=== PATIENT | male | born 1975 | race Caucasian/White ===

== ENCOUNTER 2018-11-08 20:15 | Emergency (ER) | payer OTHER ==
--- NOTE | 2018-11-08 20:26 | ED Physician Documentation ---
General Adult - HISTORIAN Historian: patient - HPI Chief Complaint: General Adult Additional Information: 43yo, white male who has been moving a lot of boxes around. Last noc started to have some pain in the left anterior chest wall area with radiation into the back. Worse with moving around, when twist torso. Pain is constant. Has a history of chronic degenerative disc disease and spinal stenosis. Panin seems to be in the lower left anterior chest wall area where he has had mesh put in for abd wall hernia Onset: hours (12 hours) Timing: still present, worse - ROS CONST: no problems. denies: fever, chills - PAST HX Past History: other (degenerative disc disease, spinal stenosis (unkown level), hx of pancreatitis) Surgeries/Procedures: cholecystectomy, other (abd wall hernia repair with mesh in the area of pain) Immunizations: referred to PCP Allergies/Adverse Reactions: Allergies Allergy/AdvReac Type Severity Reaction Status Date / Time hydroxyzine Allergy Verified 11/08/18 20:25 ketorolac [From Toradol] Allergy Verified 11/08/18 20:25 metoclopramide [From Reglan] Allergy Verified 11/08/18 20:24 NSAIDS (Non-Steroidal AdvReac Nausea/Vomi Verified 11/08/18 20:24 Anti-Inflamma ting Home Medications: Ambulatory Orders Medication Instructions Recorded HYDROcodone /APAP 5/325 [[place] 1 each PO Q6 PRN #10 tablet 11/08/18 5/325] Insulin Glargine,Hum.rec.anlog 30 units SQ HS 11/08/18 [Lantus Solostar] - SOCIAL HX Smoking History: non-smoker Alcohol Use: none Drug Use: none - FAMILY HX Family History: No - REVIEWED ASSESSMENTS Nursing Assessment Reviewed: Yes Vitals Reviewed: Yes Progress - Progress Progress: Pain seems to be worse with flexion of abd and twisting to the right ED Results Lab/Radiology - Radiology Radiology Impressions: 2 views chest Clinical history: Lower chest pain Findings: The heart size is normal. Pulmonary vasculature is normal. The lungs are clear. Impression: Negative General Adult Physical Exam - PHYSICAL EXAM GENERAL APPEARANCE: mild distress EENT: ENT inspection normal, pharynx normal NECK: normal inspection, thyroid normal, supple RESPIRATORY: no resp distress, chest non-tender, breath sounds normal. No: wheezes, rales, rhonchi CVS: reg rate & rhythm, heart sounds normal, equal pulses, no murmur, no gallop ABDOMEN: soft, no organomegaly, normal bowel sounds, no distension, tenderness (high in the left upper qudrant area). No: rebound, distended, guarding BACK: normal inspection, no CVA tenderness SKIN: warm/dry, normal color EXTREMITIES: non-tender, normal range of motion NEURO: oriented X3, CN's nml as tested, motor nml, sensation nml, mood/affect nml Discharge Clincal Impression: Abdominal wall pain Prescriptions: HYDROcodone /APAP 5/325 [[place] 5/325] 1 each PO Q6 PRN #10 tablet PRN Reason: Pain Referrals: Primary Doctor,No [Primary Care Provider] - 2 Days Additional Instructions: Alternate between a warm and cool compress to the area of pain. Avoid lifting or movements that make the pain worse. Get an appointment with a primary care provider. Take hydrocodone/APAP as directed. Watch for drowsiness. Condition: Stable Disposition: 01 HOME, SELF-CARE Decision to Admit: NO Date of Decison to Admit: 11/08/18 Decision Time: 21:41
[2018-11-08] MEDS ORDERED: ASPIRIN 81 MG CHEW TAB PO ONE (20:33)
[2018-11-08 21:25] LABS: MEAN CORPUSCULAR HEMOGLOBIN 30.4 pg (28.0-34.0)
[2018-11-08 21:27] LABS: eGFR (Non-African) > 60
[2018-11-08] MEDS ORDERED: HYDROcodone /APAP 5/325 1 EACH TABLET PEG PRN (21:54)
[2018-11-08] MEDS ORDERED: HYDROcodone /APAP 5/325 1 EACH TABLET ONE (22:03)
[2018-11-08 22:18] VITALS: BP 134/93
--- NOTE | 2018-11-09 06:23 | Diagnostic Imaging Report ---
LIBBY BAKER [facility] [address] [facility] [address] Report Submission Date: Nov 08, 2018 9:12:34 PM INDUSTRIAL MANUFACTURING TECHNICIAN Patient Study Name: LINDA JO Date: Nov 08, 2018 8:51:16 PM INDUSTRIAL MANUFACTURING TECHNICIAN Modality Type: DX Gender: M Description: CHEST 2VIEW : 77 Institution: [facility] Physician: LIBBY BAKER 2 views chest Clinical history: Lower chest pain Findings: The heart size is normal. Pulmonary vasculature is normal. The lungs are clear. Impression: Negative Electronically signed on Nov 08, 2018 9:12:34 PM INDUSTRIAL MANUFACTURING TECHNICIAN by: Trace BUTLER
[2018-11-09 09:24] LABS: ANISOCYTOSIS 1+ (NEGATIVE); BASOPHILS % 1 % (0-2); EOSINOPHILS % 1 % (0-7); HYPOCHROMASIA 1+ (NEGATIVE); MONOCYTES % 6 % (0-11); SEGMENTED NEUTROPHILS % 37 % (39-79)
[2018-11-09 09:25] LABS: STOMATOCYTES 1+ (NEGATIVE)
== END 2018-11-08 22:17 | disposition home or self-care (01) ==
LOC: ED 20:15
DX: R10.12 Left upper quadrant pain (principal)
CPT/HCPCS: 36415; 71046; 80053; 84484; 85025; 93005; 99283; 99284; A9270

== ENCOUNTER 2018-12-13 02:35 | Emergency (ER) | payer OTHER ==
--- NOTE | 2018-12-13 02:50 | ED Physician Documentation ---
General Adult - HISTORIAN Historian: patient - HPI Stated Complaint: abdominal pain Chief Complaint: Abdominal Pain Onset: days ago (6) Timing: still present Severity: mild Further Comments: yes (abdominal pain that goes from what he indicates is epigastric to right lower. He had a bowel movement earlier tonight that was loose. No fever. No rash. No sick contacts. No nausea or vomiting) Last known Well Code/Unknown Code: Unknown - ROS CONST: no problems EYES/ENT: none CVS/RESP: none GI/: abdominal pain, diarrhea (x1 ). denies: problems urinating, vomiting, nausea MS/SKIN/LYMPH: none - PAST HX Past History: none Other History: diabetes Type 2 Surgeries/Procedures: none Immunizations: UTD Allergies/Adverse Reactions: Allergies Allergy/AdvReac Type Severity Reaction Status Date / Time hydroxyzine Allergy Verified 12/13/18 03:22 ketorolac [From Toradol] Allergy Verified 12/13/18 03:22 metoclopramide [From Reglan] Allergy Verified 12/13/18 03:22 promethazine [From Phenergan] Allergy Verified 12/13/18 03:23 NSAIDS (Non-Steroidal AdvReac Nausea/Vomi Verified 12/13/18 03:22 Anti-Inflamma ting Home Medications: Ambulatory Orders Medication Instructions Recorded Insulin Glargine,Hum.rec.anlog 30 units SQ HS 11/08/18 [Lantus Solostar] - SOCIAL HX Smoking History: cigarettes Alcohol Use: none Drug Use: none - FAMILY HX Family History: No - VITAL SIGNS Vital Signs: Vital Signs Temp Pulse Resp BP Pulse Ox 134/93 11/08/18 22:08 - REVIEWED ASSESSMENTS Nursing Assessment Reviewed: Yes Vitals Reviewed: Yes ED Results Lab/Radiology - Radiology Radiology Impressions: CT abdomen and pelvis without contrast History: Left upper quadrant pain for 1 week Technique: Helically acquired images were obtained from the hemidiaphragms to the pelvic floor following IV but no oral contrast. Findings: There are surgical radiodensities along the anterior midline diaphragm relating to prior hernia repair. There is diffuse hepatic steatosis. There has been a cholecystectomy. The spleen, pancreas, adrenal glands kidneys are unremarkable. There is no hydronephrosis. There is no ureteral stone. The appendix is normal. Small and large bowel loops are normal in caliber. The sigmoid colon is redundant. The abdominal aorta is normal caliber. There is no ascites. The bladder, vesicles prostate gland are unremarkable. There is a 1 cm focus of sclerosis along inferior endplate of T11, likely discogenic endplate sclerosis or a bone island especially in the absence of known malignancies. There is a calcified granuloma left lung. Impression: Diffuse moderate to marked hepatic steatosis. Midline hernia repair at the anterior diaphragm. Status post cholecystectomy. No acute intra-abdominal or intrapelvic abnormalities. Likely benign sclerotic bone lesion at T11 as described Electronically signed on Dec 13, 2018 4:29:38 AM CDT by: Cindy Romo General Adult Physical Exam - PHYSICAL EXAM GENERAL APPEARANCE: no distress EENT: eye inspection normal, no signs of dehydration NECK: normal inspection RESPIRATORY: no resp distress, chest non-tender, breath sounds normal CVS: reg rate & rhythm, heart sounds normal, no murmur ABDOMEN: soft, no distension, tenderness (placing stethescope on abdomen right lower quadrant ), abnormal bowel sounds (hypoactive ) BACK: normal inspection, no CVA tenderness SKIN: warm/dry, normal color EXTREMITIES: non-tender, normal range of motion, no evidence of injury, no edema NEURO: oriented X3 Discharge Clincal Impression: Abdominal pain Qualifiers: Abdominal location: unspecified location Qualified Code(s): R10.9 - Unspecified abdominal pain Referrals: Primary Doctor,No [REFERRING] - 2 Days Comments: 1. Continue OTC meds as needed for pain 2. Zofran 4 mg take 1 by mouth every 8 hours as needed for nausea 3. Increase fluids 4. TAKE YOUR INSULIN 5. See your PCP in 2-4 days 6. Return to ER for any concerns Condition: Stable Disposition: 01 HOME, SELF-CARE Decision to Admit: NO Date of Decison to Admit: 12/13/18 Decision Time: 04:37
[2018-12-13] MEDS: 0.9 % SODIUM CHLORIDE 1,000 ML IV ONE (03:21)
[2018-12-13 03:28] LABS: eGFR (Non-African) > 60
[2018-12-13 03:33] LABS: MEAN CORPUSCULAR HEMOGLOBIN 31.1 pg (28.0-34.0)
[2018-12-13 03:45] LABS: CANNABINOIDS NEGATIVE ng/mL (< 50); METHYLENEDIOXYMETHAMPHETAMINE NEGATIVE ng/mL (<500)
[2018-12-13 03:46] LABS: APPEARANCE,URINE CLEAR (CLEAR); COLOR,URINE YELLOW (YELLOW); OCCULT BLOOD,URINE NEGATIVE (NEGATIVE); PH URINE 5.5 (5.0 - 8.0); UROBILINOGEN URINE 0.2 Eu (0.2-1.0)
[2018-12-13 03:52] LABS: EOSINOPHILS % 2 % (0-7); MONOCYTES % 9 % (0-11); PLT EST. EST. AGREES W/PLT CT; SEGMENTED NEUTROPHILS % 31 % (39-79)
[2018-12-13] MEDS: DICYCLOMINE HCL 20 MG TABLET PO ONE (04:40)
[2018-12-13] MEDS: ONDANSETRON HCL/PF 4 MG/ 2ML VIAL IVP ONE (04:40)
--- NOTE | 2018-12-13 04:57 | Diagnostic Imaging Report ---
TK KIRKLAND [facility] [address] [facility] [address] [place], [place]. [address] Report Submission Date: Dec 13, 2018 4:29:38 AM CDT Patient Study Name: LINDA JO Date: Dec 13, 2018 3:45:30 AM CDT Modality Type: CT\SR Gender: M Description: CT ABD PELVIS W/ CON : 77 Institution: [facility] Physician: TK KIRKLAND CT abdomen and pelvis without contrast History: Left upper quadrant pain for 1 week Technique: Helically acquired images were obtained from the hemidiaphragms to the pelvic floor following IV but no oral contrast. Findings: There are surgical radiodensities along the anterior midline diaphragm relating to prior hernia repair. There is diffuse hepatic steatosis. There has been a cholecystectomy. The spleen, pancreas, adrenal glands kidneys are unremarkable. There is no hydronephrosis. There is no ureteral stone. The appendix is normal. Small and large bowel loops are normal in caliber. The sigmoid colon is redundant. The abdominal aorta is normal caliber. There is no ascites. The bladder, vesicles prostate gland are unremarkable. There is a 1 cm focus of sclerosis along inferior endplate of T11, likely discogenic endplate sclerosis or a bone island especially in the absence of known malignancies. There is a calcified granuloma left lung. Impression: Diffuse moderate to marked hepatic steatosis. Midline hernia repair at the anterior diaphragm. Status post cholecystectomy. No acute intra-abdominal or intrapelvic abnormalities. Likely benign sclerotic bone lesion at T11 as described Electronically signed on Dec 13, 2018 4:29:38 AM CDT by: Cindy BUTLER
[2018-12-13 05:05] VITALS: BP 142/67
== END 2018-12-13 04:53 | disposition home or self-care (01) ==
LOC: ED 02:35
DX: R10.13 Epigastric pain (principal); R10.31 Right lower quadrant pain
CPT/HCPCS: 36415; 74177; 80053; 80320; 80377; 81002; 83690; 85025; 96374; 99283; 99284; J2405; J7030; Q9967; G0480; G0481; S1016